=== PATIENT | male | born 1995 | race Caucasian/White ===

== ENCOUNTER 2019-12-25 15:40 | Emergency (ER) | payer OTHER ==
[~2019-12-25] VITALS: Ht 180.3 cm; Wt 82.3 kg
[~2019-12-25 15:40] MED LIST: AGM875T PO; NAPR-243 PO
--- OUTSIDE RECORDS SUMMARY | 2019-12-25 15:48 | XMS REPORT | Continuity of Care Document ---
Author Organization Unknown Address Unknown Phone Unavailable Allergies There is no data. Medications There is no data. Problems Date Dx Coded Attending Type Code Diagnosis Diagnosed By 03/23/2008 RADHA MICHELLE APRN R V70.3 SPORTS/SCHOOL EXAM 03/23/2008 V70.3 SPOR TS/SCHOOL EXAM 10/12/2008 RADHA MICHELLE APRN R 729.5 PAIN IN LIMB 10/12/2008 729.5 PAIN IN LIMB 01/19/2009 RADHA MICHELLE APRN R 840.9 SHOULDER SPRAIN 01/19/2009 840.9 SHOU LDER SPRAIN 03/21/2009 RADHA MICHELLE APRN R 682.9 CELLULITIS 03/21/2009 682.9 CELL ULITIS 01/28/2010 RADHA MICHELLE APRN R 726.90 TENDONITIS 01/28/2010 726.90 TEN DONITIS 05/09/2010 RADHA MICHELLE APRN R 719.46 PAIN IN JOINT, LOWER LEG 05/09/2010 719.46 SEUN N IN JOINT, LOWER LEG 05/30/2010 RADHA MICHELLE APRN R 717.7 CHONDROMALACIA OF PATELLA 05/30/2010 717.7 MEKA DROMALACIA OF [place] 06/27/2010 RADHA MICHELLE APRN R 719.00 EFFUSION/SWELLING OF JOINT 06/27/2010 719.00 EFF USION/SWELLING OF JOINT 06/16/2011 RADHA MICHELLE APRN R 314.01 ADHD COMBINED 06/16/2011 314.01 ADH D COMBINED 09/02/2011 RADHA MICHELLE APRN R 296.90 MOOD DISORDER NOS 09/02/2011 296.90 MOO D DISORDER NOS 09/07/2012 RADHA MICHELLE APRN R 724.2 lower back pain Procedures Code [place] [address] PSYC H IND W/MED CK 20 06/02/2012 79468 PSYC H PHARM MGMT 09/10/2012 Results There is no data. Encounters ACCT No. Visit Date/Time Discharge Status Pt. Type Provider Facility Loc./Unit Complaint [id number] 09/07/2012 13:44:00 09/07/2012 23:59: 59 [facility] Outpatient RADHA MICHELLE APRN [id number] 06/02/2012 12:56:00 06/02/2012 23:59:5 9 [facility] Outpatient
--- NOTE | 2019-12-25 16:19 | Diagnostic Imaging Report ---
INDICATION: Knee pain post fall, heard a pop TECHNIQUE: 3 views of the left knee CORRELATION STUDY: None FINDINGS: The joint spaces are maintained. The articular surfaces are smooth and preserved. There is no acute bony abnormality. Suprapatellar joint effusion. IMPRESSION: 1. Negative for acute bony abnormality of the knee. Given symptoms, if further imaging evaluation for potential internal structural injury is desired, MRI would be recommended. Dictated by: Dictated on workstation # [id number]
--- NOTE | 2019-12-25 16:43 | ED Lower Extremity ---
General Chief Complaint: Lower Extremity Stated Complaint: L KNEE PAIN Nursing Triage Note: Pt presents to ER with Employer ([email or web address]@ [place], [place]). Pt c/o left knee pain after running up the stairs at work and left knee popped then pt states knee may have gave out and fell landing on left knee. Employer demanding to come into ER room with pt and nurse requests he follow current COVID policy and return to vehicle and wait. Nursing Sepsis Screen: No Definite Risk History of Present Illness Date Seen by Provider: December 25, 2019 Time Seen by Provider: 15:40 Initial Comments Patient going upstairs at work felt his left knee give away hit his left knee then on the stair above it after that began having more pain swelling difficulty extending or flexing his knee without pain no previous injury Onset: just prior to arrival Pain/Injury Location: left knee Method of Injury: direct blow, fell, twisted Modifying Factors: Improves With Immobilization; Worse With Movement Allergies and Home Medications Allergies Coded Allergies: No Known Drug Allergies (Unverified , 07/03/09) Patient Home Medication List Home Medication List Reviewed: Yes Review of Systems Constitutional: No chills, No fever Musculoskeletal: joint pain, joint swelling Skin: No lesions Psychiatric/Neurological: Denies Headache, Denies Tingling Past Onkppdq-Gphuok-Qlsoqm Hx Past Med/Social Hx: Reviewed Nursing Past Med/Soc Hx Patient Social History Alcohol Use: Rarely Uses Recreational Drug Use: No Smoking Status: Current Everyday Smoker Type Used: Cigarettes 2nd Hand Smoke Exposure: No Recent Foreign Travel: No Contact w/Someone Who Travel: No Recent Infectious Disease Expo: No Recent Hopitalizations: No Physical Abuse: No Sexual Abuse: No Mistreated: No Fear: No Seasonal Allergies Seasonal Allergies: No Past Medical History Surgeries: Yes Adenoidectomy, Tonsillectomy Respiratory: No Cardiac: No Neurological: No Genitourinary: No Gastrointestinal: No Musculoskeletal: No Endocrine: No HEENT: No Cancer: No Psychosocial: No Integumentary: No Blood Disorders: No Physical Exam Vital Signs Vital Signs - First Documented 12/25/19 16:00 Temp 37.2 Pulse 90 Resp 20 B/P (MAP) 145/85 (105) Pulse Ox 97 O2 Delivery Room Air Capillary Refill : Less Than 3 Seconds Height, Weight, BMI Height: '" Weight: lbs. oz. kg; 25.00 BMI Method:Stated General Appearance: WD/WN, no apparent distress Knees: right knee non-tender, right knee normal inspection; left knee joint effusion, left knee pain, left knee soft tissue tenderness, left knee swelling, left knee other (slight laxity medial collateral negative on the Dave test slight tenderness on cartilaginous maneuvers particularly medially) Neurologic/Tendon: normal sensation, normal motor functions, normal tendon functions Neurologic/Psychiatric: no motor/sensory deficits, alert, normal mood/affect, oriented x 3 Skin: normal color, warm/dry Progress/Results/Core Measures Results/Orders My Orders Orders - ELI DANG JR, MD Knee 3 View Left (12/25/19 16:08) Vital Signs/I&O 12/25/19 16:00 Temp 37.2 Pulse 90 Resp 20 B/P (MAP) 145/85 (105) Pulse Ox 97 O2 Delivery Room Air Blood Pressure Mean: 105 Progress Progress Note : Time: 16:42 Progress Note This time discussed knee and Fechter will rapid put him on crutches elevation ice ibuprofen follow-up for recheck 3-4 days Departure Impression Primary Impression: Sprain of knee Qualified Codes: S83.92XA - Sprain of unspecified site of left knee, initial encounter Disposition: HOME, SELF-CARE Condition: Stable Departure-Patient Inst. Referrals: [facility]TH[facility] - [facility] Patient Instructions: Ligament Injuries in the Knee (DC) Add. Discharge Instructions: Nestor wrap as needed crutch walking touch weightbearing elevation I's ibuprofen follow with referral 3-5 days for exam All discharge instructions reviewed with patient and/or family. Voiced understanding. ELI DANG JR, MD December 25, 2019 16:43
[2019-12-25 17:08] VITALS: BP 139/81
--- NOTE | 2019-12-25 17:08 | NUR ---
Pt discharged in care of employer waiting on patient. 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 Staff explained Dr Garibay is [employer] not [employer] and he is not an employee with us. They will defer post accident testing and resume under [employer] of employment planning his follow up visit in 3-5 days. Pt left with Work Comp form, crutches, and ER discharge instructions.
== END 2019-12-25 17:08 | disposition home or self-care (01) ==
LOC: EDUNIT# 15:40 → ER FS 15:43
DX: S83.92XA Sprain of unspecified site of left knee, initial encounter (principal); F17.210 Nicotine dependence, cigarettes, uncomplicated; W10.9XXA Fall (on) (from) unspecified stairs and steps, initial encounter; X50.1XXA Overexertion from prolonged static or awkward postures, initial encounter; Y92.59 Other trade areas as the place of occurrence of the external cause
CPT/HCPCS: 73562